=== PATIENT | female | born 1990 ===

== ENCOUNTER 2020-11-28 10:54 | Emergency (ER) | payer SELFPAY ==
[2020-11-28 14:06] LABS: HCG Qualitative,Urine Positive (Negative)
[2020-11-28] MEDS ORDERED: ACETAMINOPHEN 325 MG TAB PO ONE (15:05)
[2020-11-28 16:49] VITALS: BP 120/74
== END 2020-11-28 16:49 | disposition home or self-care (01) ==
LOC: ED 10:54
DX: O26.891 Other specified pregnancy related conditions, first trimester (principal); R51.9 Headache, unspecified; M54.2 Cervicalgia; R07.89 Other chest pain; M79.18 Myalgia, other site; Z3A.01 Less than 8 weeks gestation of pregnancy; Z98.890 Other specified postprocedural states; V98 Other specified transport accidents; Y93.89 Activity, other specified; Y92.488 Other paved roadways as the place of occurrence of the external cause; Y99.8 Other external cause status
CPT/HCPCS: 71046; 81025; 99283